=== PATIENT | male | born 1960 | race Caucasian/White ===

== ENCOUNTER 2018-06-26 14:07 | Emergency (ER) | payer MEDICAID ==
--- NOTE | 2018-06-26 15:17 | ED Physician Documentation ---
History of Present Illness - Stated complaint Stated Complaint: FEVER/NAUSEA - Chief complaint Chief Complaint: General - History obtained from History obtained from: Patient - History of Present Illness Timing: Other (1 month of jaw infection worsening and now with fevers/nausea x5 days. Pain on both sides of jaw, also slight sore throat and cough x5 days. General aches.) Review of Systems Ten Systems: 10 systems reviewed and negative Constitutional: reports: Fever, Chills, Fatigue Ears: denies: Ear pain Nose: denies: Rhinorrhea / runny nose, Congestion Throat: reports: Dental pain / toothache, Sore throat Cardiac: denies: Chest pain / pressure, Palpitations Respiratory: denies: Dyspnea, Cough PD PAST MEDICAL HISTORY - Past Medical History Past Medical History: No Cardiovascular: None Respiratory: None Neuro: None GI: None : None HEENT: None Psych: None Musculoskeletal: None Derm: None - Past Surgical History Past Surgical History: No - Present Medications Home Medications: Ambulatory Orders Medication Instructions Recorded Confirmed Hydrocodone/Acetaminophen [[place] 1 each PO Q6H PRN #15 tablet 12/06/14 5-325 Tablet] Sulfamethoxazole/Trimethoprim 1 each PO BID #14 tablet 12/06/14 [Bactrim Ds Tablet] Amoxicillin 500 mg PO TID #30 capsule 06/26/18 - Allergies Allergies/Adverse Reactions: Allergies Allergy/AdvReac Type Severity Reaction Status Date / Time No Known Drug Allergies Allergy Verified 06/26/18 14:19 - Social History Does the pt smoke?: Yes Smoking Status: Current every day smoker Does the pt drink ETOH?: No Does the pt have substance abuse?: Yes Substance Use and Type: Marijuana - Immunizations Immunizations are current?: No Immunizations: TDAP current <10years, Other immun not current - POLST Patient has POLST: No PD ED PE NORMAL - Vitals Vital signs reviewed: Yes - General General: Alert and oriented X 3, No acute distress - HEENT HEENT: Other (Most of his teeth are eroded down to the gumline and diffusely tender around the jaw without any swelling or sublingual edema or trismus.) - Neck Neck: Supple, no meningeal sign, No bony TTP - Neuro Neuro: Alert and oriented X 3, Normal speech Results - Vitals Vitals: Vital Signs - 24 hr 06/26/18 14:15 Temperature 36.9 C Heart Rate 90 Respiratory 16 Rate Blood Pressure 150/82 H O2 Saturation 100 Oxygen O2 Source Room air Departure - Departure Disposition: 01 Home, Self Care Clinical Impression: Dental caries Condition: Good Record reviewed to determine appropriate education?: Yes Instructions: ED Cavity Dental Prescriptions: Amoxicillin 500 mg PO TID #30 capsule Comments: It is very important that you follow-up with a dentist. When it comes to dental problems like yours, the emergency department can only offer a short-term solution to your long-term problem. A couple of low cost options for dental care include: [facility] in [place], calls [phone] for an appointment Or [facility] in [place], call [phone] for an appointment. Your blood pressure was elevated today on check into the emergency department. This does not mean that you have hypertension, it is a common phenomenon to come to the emergency department and have elevated blood pressure. I recommend that you see your primary care physician within the week to have it rechecked when you are feeling better.
[2018-06-26 15:46] VITALS: BP 131/81
== END 2018-06-26 15:46 | disposition home or self-care (01) ==
LOC: ED 14:07
DX: K02.9 Dental caries, unspecified (principal); R03.0 Elevated blood-pressure reading, without diagnosis of hypertension; F17.200 Nicotine dependence, unspecified, uncomplicated
CPT/HCPCS: 99283

== ENCOUNTER 2023-11-21 11:46 | Emergency (ER) | payer MEDICAID, OTHER ==
[2023-11-21] MEDS: IBUPROFEN 600 MG TABLET PO ONE (12:59)
[2023-11-21] MEDS: ACETAMINOPHEN 500 MG TABLET PO ONE (12:59)
--- NOTE | 2023-11-21 13:11 | ED Physician Documentation ---
PD HPI MALE - Stated complaint Stated Complaint: FEVER, - History obtained from History obtained from: Patient PD PAST MEDICAL HISTORY - Past Medical History Cardiovascular: None Respiratory: None Neuro: None GI: None : None HEENT: None Psych: None Musculoskeletal: None Derm: None - Past Surgical History Past Surgical History: No - Present Medications Home Medications: Ambulatory Orders Medication Instructions Recorded Confirmed Amox/Clav 875/125 [Augmentin] 1 each PO Q12H #20 tablet 08/07/22 Chlorhexidine Gluconate [Peridex] 15 ml MM QID #4 each 08/07/22 Ondansetron Odt [Zofran] 4 mg TL Q6H PRN #10 tablet 11/21/23 Phenazopyridine HCl [Pyridium] 100 mg PO TID PRN #15 tablet 11/21/23 cephALEXin [Keflex] 500 mg PO TID #20 cap 11/21/23 - Allergies Allergies/Adverse Reactions: Allergies Allergy/AdvReac Type Severity Reaction Status Date / Time No Known Drug Allergies Allergy Verified 11/21/23 13:13 - Social History Does the pt smoke?: Yes Smoking Status: Current every day smoker Does the pt drink ETOH?: No Does the pt have substance abuse?: Yes - Immunizations Immunizations are current?: No Immunizations: TDAP current <10years, Other immun not current - POLST Patient has POLST: No PD ED PE NORMAL - Vitals Vital signs reviewed: Yes - General General: Alert and oriented X 3, No acute distress, Well developed/nourished Results - Vitals Vitals: Vital Signs - 24 hr 11/21/23 11/21/23 11/21/23 12:59 13:13 14:28 Temperature 38.1 C H 37 C 36.3 C L Heart Rate 85 62 Respiratory 17 18 Rate Blood Pressure 156/80 H 122/80 O2 Saturation 99 98 Oxygen O2 Source Room air - Labs Labs: Laboratory Tests 11/21/23 11/21/23 11/21/23 12:00 12:00 12:56 WBC 21.8 H RBC 4.63 L Hgb 13.9 L Hct 42.7 MCV 92.2 MCH 30.0 MCHC 32.6 RDW 12.0 Plt Count 302 MPV 9.5 Neut # (Auto) 16.7 H Lymph # (Auto) 1.0 L Ray # (Auto) 3.7 H Eos # (Auto) 0.0 Baso # (Auto) 0.1 Absolute Nucleated RBC 0.00 Nucleated RBC % 0.0 Manual Slide Review Indicated RBC Morph Micro Appear 1+ ANISOCYTOSIS Sodium Potassium Chloride Carbon Dioxide Anion Gap BUN Creatinine Estimated GFR (MDRD) Glucose Lactic Acid Calcium Total Bilirubin AST ALT Alkaline Phosphatase Total Protein Albumin Globulin Albumin/Globulin Ratio Lipase Urine Color YELLOW Urine Clarity CLOUDY Urine pH 6.0 Ur Specific [place] 1.025 Urine Protein 100 H Urine Glucose (UA) NEGATIVE Urine Ketones NEGATIVE Urine Occult Blood MODERATE H Urine Nitrite POSITIVE H Urine Bilirubin NEGATIVE Urine Urobilinogen 0.2 (NORMAL) Ur Leukocyte Esterase MODERATE H Urine RBC 6-10 H Urine WBC >25 H Ur Squamous Epith Cells RARE Squamous Urine Bacteria Many H Ur Microscopic Review INDICATED Urine Culture Comments INDICATED Nasal Adenovirus (PCR) NOT DETECTED Nasal B. parapertussis DNA (PCR) NOT DETECTED Nasal Coronavir 229E PCR NOT DETECTED Nasal Coronavir HKU1 PCR NOT DETECTED Nasal Coronavir NL63 PCR NOT DETECTED Nasal Coronavir OC43 PCR NOT DETECTED Nasal Enterovir/Rhinovir PCR NOT DETECTED Nasal Influenza B PCR NOT DETECTED Nasal Influenza A PCR NOT DETECTED Nasal Parainfluen 1 PCR NOT DETECTED Nasal Parainfluen 2 PCR NOT DETECTED Nasal Parainfluen 3 PCR NOT DETECTED Nasal Parainfluen 4 PCR NOT DETECTED Nasal RSV (PCR) NOT DETECTED Nasal B.pertussis DNA PCR NOT DETECTED Nasal C.pneumoniae (PCR) NOT DETECTED Kamran Human Metapneumo PCR NOT DETECTED Nasal M.pneumoniae (PCR) NOT DETECTED Nasal SARS-CoV-2 (PCR) NOT DETECTED 11/21/23 11/21/23 12:56 12:56 WBC RBC Hgb Hct MCV MCH MCHC RDW Plt Count MPV Neut # (Auto) Lymph # (Auto) Ray # (Auto) Eos # (Auto) Baso # (Auto) Absolute Nucleated RBC Nucleated RBC % Manual Slide Review RBC Morph Micro Appear Sodium 131 L Potassium 4.9 H Chloride 97 L Carbon Dioxide 29 Anion Gap 5.0 L BUN 23 H Creatinine 1.6 H Estimated GFR (MDRD) 44 L Glucose 151 H Lactic Acid 1.5 Calcium 10.6 H Total Bilirubin 0.7 AST 15 ALT 19 Alkaline Phosphatase 90 Total Protein 7.4 Albumin 3.9 Globulin 3.5 Albumin/Globulin Ratio 1.1 Lipase 15 Urine Color Urine Clarity Urine pH Ur Specific [place] Urine Protein Urine Glucose (UA) Urine Ketones Urine Occult Blood Urine Nitrite Urine Bilirubin Urine Urobilinogen Ur Leukocyte Esterase Urine RBC Urine WBC Ur Squamous Epith Cells Urine Bacteria Ur Microscopic Review Urine Culture Comments Nasal Adenovirus (PCR) Nasal B. parapertussis DNA (PCR) Nasal Coronavir 229E PCR Nasal Coronavir HKU1 PCR Nasal Coronavir NL63 PCR Nasal Coronavir OC43 PCR Nasal Enterovir/Rhinovir PCR Nasal Influenza B PCR Nasal Influenza A PCR Nasal Parainfluen 1 PCR Nasal Parainfluen 2 PCR Nasal Parainfluen 3 PCR Nasal Parainfluen 4 PCR Nasal RSV (PCR) Nasal B.pertussis DNA PCR Nasal C.pneumoniae (PCR) Kamran Human Metapneumo PCR Nasal M.pneumoniae (PCR) Nasal SARS-CoV-2 (PCR) PD Medical Decision Making - ED course Complexity details: considered differential (seems like UTI. Pt came induring down time for [place] CK1. See paper charting. ), d/w patient Departure - Departure Disposition: 01 Home, Self Care Clinical Impression: UTI (urinary tract infection), Fever and chills Condition: Stable Record reviewed to determine appropriate education?: Yes Instructions: ED UTI Cystitis Male Prescriptions: cephALEXin [Keflex] 500 mg PO TID #20 cap Phenazopyridine HCl [Pyridium] 100 mg PO TID PRN #15 tablet PRN Reason: Abdominal Pain Ondansetron Odt [Zofran] 4 mg TL Q6H PRN #10 tablet PRN Reason: Nausea / Vomiting Comments: Your urine does show signs of infection consistent with your symptoms. Your white count is elevated. Your kidney function is off a little bit so be sure to hydrate really well over the next several days. We would go with the antibiotic cephalexin as directed. You can also use phenazopyridine to help with urinary discomfort. The incontinence you have been having is likely spasms from the bladder from the infection. Stay well-hydrated. Tylenol and/or ibuprofen for fevers and pains. Zofran if needed for nausea. I would anticipate improvement over the next few days and resolution by 3 to 5 d ays completely. I sent your prescriptions to the [facility] in [place]. Return if nausea vomiting or unable to take medicines or feeling weak or lightheaded or other concerns. Forms: PCP List Discharge Date/Time: 11/21/23 14:28
[2023-11-21 13:16] LABS: BASOPHILS # (AUTO) 0.1 10^3/uL (0.0-0.1); BASOPHILS % (AUTO) 0.5 %; HCT - HEMATOCRIT 42.7 % (42.0-52.0); HGB - HEMOGLOBIN 13.9 g/dL (14.0-18.0); LYMPHOCYTES % (AUTO) 4.6 %; MEAN CORPUSCULAR HGB CONC 32.6 g/dL (32.0-36.0); MEAN CORPUSCULAR VOLUME 92.2 fL (80.0-94.0); MEAN PLATELET VOLUME 9.5 fL (7.4-11.4); MONOCYTES # (AUTO) 3.7 10^3/uL (0.0-1.0); NEUTROPHILS # (AUTO) 16.7 10^3/uL (1.5-6.6); NEUTROPHILS % (AUTO) 76.8 %; PLT - PLATELET COUNT 302 10^3/uL (130-450); RED BLOOD COUNT 4.63 10^6/uL (4.70-6.10); WHITE BLOOD COUNT 21.8 x10^3/uL (4.8-10.8)
[2023-11-21 13:21] LABS: BILIRUBIN,URINE NEGATIVE (NEGATIVE); GLUCOSE, URINE (UA) NEGATIVE (NEGATIVE); KETONES,URINE (UA) NEGATIVE (NEGATIVE); LEUKOCYTE ESTERASE, URINE MODERATE (NEGATIVE); NITRITE,URINE POSITIVE (NEGATIVE); OCCULT BLOOD,URINE MODERATE (NEGATIVE); PROTEIN,URINE 100 mg/dL (NEGATIVE); UROBILINOGEN,URINE 0.2 (NORMAL) E.U./dL (NORMAL)
[2023-11-21 13:22] LABS: CLARITY,URINE CLOUDY (CLEAR); SQUAMOUS EPITHELIAL CELL,UR RARE Squamous (<= Few); WBC,URINE >25 /HPF (0-3)
[2023-11-21 13:23] LABS: BACTERIA,URINE Many /HPF (None Seen)
[2023-11-21 13:28] LABS: ALBUMIN 3.9 g/dL (3.2-5.5); ALBUMIN/GLOBULIN RATIO 1.1 (1.0-2.2); BILIRUBIN,TOTAL 0.7 mg/dL (0.2-1.0); CALCIUM 10.6 mg/dL (8.5-10.3); CREATININE 1.6 mg/dL (0.6-1.3); POTASSIUM 4.9 mmol/L (3.5-4.5); SLIDE REVIEW? Indicated; TOTAL PROTEIN 7.4 g/dL (6.4-8.9)
[2023-11-21 13:47] LABS: RBC MORPHOLOGY (MULTIPLE) 1+ ANISOCYTOSIS (NORMAL)
[2023-11-21] MEDS: cephALEXin 250 MG CAPSULE PO STA (14:20)
[2023-11-21] MEDS: PHENAZOPYRIDINE 100 MG TABLET PO STA (14:20)
[2023-11-21 14:31] VITALS: BP 122/80; O2SAT 98
[2023-11-21 14:37] LABS: B. PARAPERTUSSIS- RESP PCR PAN NOT DETECTED; B. PERTUSSIS- RESP PCR PANEL NOT DETECTED; C. PNEUMONIAE- RESP PCR PANEL NOT DETECTED; CORONAVIRUS 229E-RESP PCR NOT DETECTED; CORONAVIRUS HKU1-RESP PCR NOT DETECTED; CORONAVIRUS NL63-RESP PCR NOT DETECTED; CORONAVIRUS OC43-RESP PCR NOT DETECTED; HUMAN METAPNEUMOVIRUS NOT DETECTED; INFLUENZA A- RESP PCR PANEL NOT DETECTED; INFLUENZA B - RESP PCR PANEL NOT DETECTED; M. PNEUMONIAE- RESP PCR PANEL NOT DETECTED; PARAINFLUENZA VIRUS 1 NOT DETECTED; PARAINFLUENZA VIRUS 2 NOT DETECTED; PARAINFLUENZA VIRUS 3 NOT DETECTED; PARAINFLUENZA VIRUS 4 NOT DETECTED; RHINOVIRUS/ENTEROVIRUS NOT DETECTED; RSV- RESP PCR PANEL NOT DETECTED; SARS-CoV-2 -RESP PCR PANEL NOT DETECTED
== END 2023-11-21 14:28 | disposition home or self-care (01) ==
LOC: ED 11:46
DX: N39.0 Urinary tract infection, site not specified (principal); F17.200 Nicotine dependence, unspecified, uncomplicated; Z79.899 Other long term (current) drug therapy
CPT/HCPCS: 36415; 80053; 81001; 83605; 83690; 85025; 87086; 87633; 99283; A9270; 81003

== ENCOUNTER 2024-01-19 08:16 | Emergency (ER) | payer SELFPAY ==
[2024-01-19 08:29] VITALS: O2SAT 100
--- NOTE | 2024-01-19 08:34 | ED Physician Documentation ---
PD HPI MALE - Stated complaint Stated Complaint: - Chief complaint Chief Complaint: UTI - History obtained from History obtained from: Patient - Additional information Additional information: This is a 63-year-old gentleman who presents by private vehicle to the emergency department thinking he has a bladder infection. He has had several days to maybe even 2 weeks of dysuria and difficulty urinating. If this is an infection, it would be his third in as many months, seen November 20 and December 05 for similar. On the first visit he grew out both E. coli and Proteus that were pansensitive, on the second visit also grew out Proteus now resistant to nitrofurantoin. Prior to this he does not have any history of urologic issues such as enlarged prostate and. He has never seen a urologist. PD PAST MEDICAL HISTORY - Past Medical History Cardiovascular: None Respiratory: None Neuro: None GI: None : None HEENT: None Psych: None Musculoskeletal: None Derm: None - Past Surgical History Past Surgical History: No - Present Medications Home Medications: Ambulatory Orders Medication Instructions Recorded Confirmed Ciprofloxacin HCl [Cipro] 500 mg PO BID #20 tablet 01/19/24 - Allergies Allergies/Adverse Reactions: Allergies Allergy/AdvReac Type Severity Reaction Status Date / Time No Known Drug Allergies Allergy Verified 01/19/24 08:25 - Social History Does the pt smoke?: Yes Smoking Status: Current every day smoker Does the pt drink ETOH?: No Does the pt have substance abuse?: Yes - Immunizations Immunizations are current?: No Immunizations: TDAP current <10years, Other immun not current - POLST Patient has POLST: No PD ED PE NORMAL - Vitals Vital signs reviewed: Yes - General General: Alert and oriented X 3, No acute distress - Abdomen Abdomen: Non tender - Back Back: No CVA TTP Results - Vitals Vitals: Vital Signs - 24 hr 01/19/24 01/19/24 08:25 09:55 Temperature 36.7 C 36.9 C Heart Rate 82 76 Respiratory 16 18 Rate Blood Pressure 138/69 H 131/78 H O2 Saturation 100 100 Oxygen O2 Source Room air - Labs Labs: Laboratory Tests 01/19/24 09:09 Urine Color YELLOW Urine Clarity SL. CLOUDY Urine pH 6.0 Ur Specific [place] 1.015 Urine Protein 100 H Urine Glucose (UA) NEGATIVE Urine Ketones NEGATIVE Urine Occult Blood SMALL H Urine Nitrite POSITIVE H Urine Bilirubin NEGATIVE Urine Urobilinogen 0.2 (NORMAL) Ur Leukocyte Esterase MODERATE H Urine RBC 0-5 Urine WBC >25 H Ur Squamous Epith Cells RARE Squamous Urine Bacteria Many H Ur Microscopic Review INDICATED Urine Culture Comments INDICATED PD Medical Decision Making - ED course ED course: He presents with symptoms of cystitis and if so this would be his third case in as many months. Discussed with him that he would need follow-up with urology as this is abnormal. Will also obtain a postvoid bladder scan. His postvoid bladder scan was only 100 mL so does not need urgent intervention. Departure - Departure Disposition: Home, Self Care Clinical Impression: UTI (urinary tract infection) Qualifiers: Urinary tract infection type: acute cystitis Hematuria presence: without hematuria Qualified Code(s): N30.00 - Acute cystitis without hematuria Condition: Good Record reviewed to determine appropriate education?: Yes Instructions: ED UTI Cystitis Male Follow-Up: Anmol Rose MD [Provider Admit Priv/Credential] - Prescriptions: Ciprofloxacin HCl [Cipro] 500 mg PO BID #20 tablet Comments: I sent your prescription electronically to the [facility] in [place]. You were seen today for a bladder infection. This is your third in as many months. It is not normal to have bladder infections that frequently and I recommend you follow-up with urologist for further evaluation and treatment. Thankfully though, your "postvoid residual" which is how much urine is left in the bladder after urinating was not significantly elevated. The urologist office phone number is on this form. Please call today for next available appointment. You may need referral from your primary care physician as well. Call your doctor to arrange a follow-up appointment, make the next available appointment. In the interim, return anytime if worse or if new symptoms develop. We will culture your urine, the results should be done in 48-72 hours. If an antibiotic change is necessary we will call you. Return if worse in the meantime, especially if you develop increasing flank pain, fevers, or cannot keep down the medication. Discharge Date/Time: 01/19/24 09:55
[2024-01-19 09:14] LABS: BILIRUBIN,URINE NEGATIVE (NEGATIVE); GLUCOSE, URINE (UA) NEGATIVE (NEGATIVE); KETONES,URINE (UA) NEGATIVE (NEGATIVE); LEUKOCYTE ESTERASE, URINE MODERATE (NEGATIVE); NITRITE,URINE POSITIVE (NEGATIVE); OCCULT BLOOD,URINE SMALL (NEGATIVE); PROTEIN,URINE 100 mg/dL (NEGATIVE); UROBILINOGEN,URINE 0.2 (NORMAL) E.U./dL (NORMAL)
[2024-01-19 09:25] LABS: CLARITY,URINE SL. CLOUDY (CLEAR); WBC,URINE >25 /HPF (0-3)
[2024-01-19 09:26] LABS: BACTERIA,URINE Many /HPF (None Seen); RBC,URINE 0-5 /HPF (0-5); SQUAMOUS EPITHELIAL CELL,UR RARE Squamous (<= Few)
[2024-01-19] MEDS: CIPROFLOXACIN 250 MG TABLET PO STA (09:46)
[2024-01-19 10:04] VITALS: BP 131/78
== END 2024-01-19 09:55 | disposition home or self-care (01) ==
LOC: ED 08:16
DX: N30.00 Acute cystitis without hematuria (principal); F17.200 Nicotine dependence, unspecified, uncomplicated
CPT/HCPCS: 81001; 87086; 87181; 99283; A9270; 81003